=== PATIENT | male | born 1975 | race Caucasian/White ===

== ENCOUNTER 2017-10-19 21:35 | Emergency (ER) | payer BC ==
[~2017-10-19] VITALS: Ht 182.9 cm; Wt 113.4 kg
[2017-10-19 22:07] VITALS: BP 178/70
[2017-10-19 22:10] LABS: BASO % 0 % (0-3); EOS # 0.3 x10^3/uL (0.0-0.7); EOS % 4 % (0-3); HEMATOCRIT 46.4 % (39.0-53.0); HEMOGLOBIN 15.8 g/dL (13.0-17.5); LYMPH # 2.6 x10^3/uL (1.0-4.8); LYMPH % 33 % (24-48); MEAN CORPUSCULAR HEMOGLOBIN 31 pg (25-35); MEAN CORPUSCULAR HGB CONC 34 g/dL (31-37); MEAN CORPUSCULAR VOLUME 91 fL (79-100); MONO # 0.9 x10^3/uL (0.0-1.1); MONO % 12 % (0-9); NEUT % 51 % (31-73); PLATELET COUNT 196 x10^3/uL (140-400); RED BLOOD COUNT 5.12 x10^6/uL (4.30-5.70); RED CELL DISTRIBUTION WIDTH 14.2 % (11.5-14.5); WHITE BLOOD COUNT 7.8 x10^3/uL (4.0-11.0)
[2017-10-19 22:18] LABS: PROTHROMBIN TIME PATIENT 12.9 SEC (11.7-14.0)
[2017-10-19 22:21] LABS: D-DIMER < 0.27 ug/mlFEU (0.00-0.50)
[2017-10-19 22:26] LABS: CALCIUM 8.9 mg/dL (8.5-10.1); CREATININE 0.8 mg/dL (0.7-1.3); GFR 106.5; POTASSIUM 4.1 mmol/L (3.5-5.1)
[2017-10-19] MEDS ORDERED: ALBUTEROL SULFATE 2.5 MG/3 ML NEBU. NEB ONE (22:30)
[2017-10-19 22:31] LABS: ALBUMIN 3.4 g/dL (3.4-5.0); ALBUMIN/GLOBULIN RATIO 1.1 (1.0-1.7); TOTAL BILIRUBIN 0.3 mg/dL (0.2-1.0); TOTAL PROTEIN 6.5 g/dL (6.4-8.2)
[2017-10-19] MEDS ORDERED: PROAIR HFA8.5 GM INH (23:31)
--- NOTE | 2017-10-19 23:35 | PHYS DOC ---
Past Medical History Past Medical History: Other Additional Past Medical Histor: CHRONIC BACK PAIN Alcohol Use: None Drug Use: None Adult General Chief Complaint Chief Complaint: CHEST PAIN HPI HPI Patient is a 42 year old male who presents to the emergency department with complaints of chest tightness. He states that he was seen at [facility] in [place] this morning for the same thing and he had a complete workup. Including lab work and a CT scan of his chest. He states that he declined to be admitted to [place]. Patient denies any chest pain at this time he states that it feels like he can't take a deep breath patient denies any nausea, vomiting, breaking out in a sweat, indigestion, back pain, or abdominal pain. Patient also denies any swelling in his extremities, diarrhea, fever, or headache. He states that he has had a dry cough, and has felt a little short of breath for the last 3 days. Currently he rates his pain as a 0-10 on the pain scale. Patient states he is allergic to penicillin and red meat, he has a history of chronic back pain and is a former smoker he quit approximately 8 years ago. Patient states that while he was at [facility] he did not receive breathing treatment. Review of Systems Review of Systems Constitutional: Denies fever or chills [] Eyes: Denies change in visual acuity, redness, or eye pain [] HENT: Denies nasal congestion or sore throat [] Respiratory: Reports dry cough, chest tightness, and shortness of breath or the last 3 days. Cardiovascular: He denies any chest pain, palpitations, syncope, dizziness, or diaphoresis. GI: Denies abdominal pain, nausea, vomiting, or diarrhea [] Musculoskeletal: Denies back pain or joint pain [] Integument: Denies rash or skin lesions [] Neurologic: Denies headache, focal weakness or sensory changes [] All other systems were reviewed and found to be within normal limits, except as documented in this note. Current Medications Current Medications Current Medications Medications (Trade) Dose Ordered Sig/Soren Start Time Stop Time Status Last Admin Dose Admin Albuterol Sulfate (Ventolin Neb Soln) 2.5 mg 1X ONCE 10/19/17 22:30 10/19/17 22:31 DC 10/19/17 22:30 2.5 MG Dexamethasone Sodium Phosphate (Decadron) 10 mg 1X ONCE 10/19/17 23:45 10/19/17 23:46 DC 10/19/17 23:41 10 MG Allergies Allergies Allergies Coded Allergies Type Severity Reaction Last Updated Verified Penicillins Allergy Unknown 10/19/17 Yes Uncoded Allergies Type Severity Reaction Last Updated Verified RED MEAT Allergy Unknown 10/19/17 Physical Exam Physical Exam Constitutional: Well developed, well nourished, no acute distress, non-toxic appearance. [] HENT: Normocephalic, atraumatic, bilateral external ears normal, oropharynx moist, no oral exudates, nose normal. [] Eyes: PERRLA, EOMI, conjunctiva normal, no discharge. [] Neck: Normal range of motion, no tenderness, supple, no stridor. [] Cardiovascular:Heart rate regular rhythm, no murmur [] Lungs & Thorax: Bilateral breath sounds clear to auscultation [] Abdomen: Bowel sounds normal, soft, no tenderness, no masses, no pulsatile masses. [] Skin: Warm, dry, no erythema, no rash. [] Back: No tenderness, no CVA tenderness. [] Extremities: No tenderness, no cyanosis, no clubbing, ROM intact, no edema. [] Neurologic: Alert and oriented X 3, normal motor function, normal sensory function, no focal deficits noted. [] Psychologic: Affect normal, judgement normal, mood normal. [] Current Patient Data Vital Signs Vital Signs Date Time Temp Pulse Resp B/P (MAP) Pulse Ox O2 Delivery O2 Flow Rate FiO2 10/19/17 22:56 99 Room Air 10/19/17 22:07 98.6 70 18 178/70 (106) 98.6 Lab Values Laboratory Tests Test 10/19/17 22:00 White Blood Count 7.8 x10^3/uL (4.0-11.0) Red Blood Count 5.12 x10^6/uL (4.30-5.70) Hemoglobin 15.8 g/dL (13.0-17.5) Hematocrit 46.4 % (39.0-53.0) Mean Corpuscular Volume 91 fL (79-100) Mean Corpuscular Hemoglobin 31 pg (25-35) Mean Corpuscular Hemoglobin Concent 34 g/dL (31-37) Red Cell Distribution Width 14.2 % (11.5-14.5) Platelet Count 196 x10^3/uL (140-400) Neutrophils (%) (Auto) 51 % (31-73) Lymphocytes (%) (Auto) 33 % (24-48) Monocytes (%) (Auto) 12 % (0-9) H Eosinophils (%) (Auto) 4 % (0-3) H Basophils (%) (Auto) 0 % (0-3) Neutrophils # (Auto) 4.0 x10^3uL (1.8-7.7) Lymphocytes # (Auto) 2.6 x10^3/uL (1.0-4.8) Monocytes # (Auto) 0.9 x10^3/uL (0.0-1.1) Eosinophils # (Auto) 0.3 x10^3/uL (0.0-0.7) Basophils # (Auto) 0.0 x10^3/uL (0.0-0.2) Prothrombin Time 12.9 SEC (11.7-14.0) Prothrombin Time INR 1.0 (0.8-1.1) D-Dimer (Selina) < 0.27 ug/mlFEU Sodium Level 138 mmol/L (136-145) Potassium Level 4.1 mmol/L (3.5-5.1) Chloride Level 105 mmol/L (98-107) Carbon Dioxide Level 28 mmol/L (21-32) Anion Gap 5 (6-14) L Blood Urea Nitrogen 16 mg/dL (8-26) Creatinine 0.8 mg/dL (0.7-1.3) Estimated GFR (Cockcroft-Gault) 106.5 BUN/Creatinine Ratio 20 (6-20) Glucose Level 86 mg/dL (70-99) Calcium Level 8.9 mg/dL (8.5-10.1) Total Bilirubin 0.3 mg/dL (0.2-1.0) Aspartate Amino Transferase (AST) 22 U/L (15-37) Alanine Aminotransferase (ALT) 44 U/L (16-63) Alkaline Phosphatase 43 U/L (46-116) L Troponin I Quantitative < 0.017 ng/mL (0.000-0.055) Total Protein 6.5 g/dL (6.4-8.2) Albumin 3.4 g/dL (3.4-5.0) Albumin/Globulin Ratio 1.1 (1.0-1.7) Laboratory Tests 10/19/17 22:00 Laboratory Tests 10/19/17 22:00 Patient brought his lab work from [facility] in [place] that was done earlier this morning at approximately 7:22 AM his troponin at that time was 0.12 his CK-MB was 2.55 his CK was 122, BNP was 232 and d-dimer was not measured. CBC and CMP were within normal limits EKG EKG Sinus rhythm, no ST elevation read by Dr. Hinojosa at 2150 [] Radiology/Procedures Radiology/Procedures Chest x-ray negative for any acute findings read by Dr. Hinojosa[] Course & Med Decision Making Course & Med Decision Making Pertinent Labs and Imaging studies reviewed. (See chart for details) Patient is a 42-year-old male who presented to the emergency room with complaints of chest tightness, and shortness of breath for the last 3 days with a dry cough. VSS, EKG was not concerning for an acute myocardial infarction, chest x-ray did not reveal any acute thoracic process. Labs were unremarkable, patient's troponin was not elevated, his d-dimer was negative. Pt reported decreased chest tightness and feeling better after he received 1 albuterol treatment in the emergency department. Differential diagnosis included acute coronary infarction, pulmonary embolus, pneumonia, and bronchitis. His clinical exam and test results support a diagnosis of bronchitis. Patient was given one dose of a IV Decadron prior to discharge he continued to report feeling better and denied chest pain throughout his visit. She verbalized understanding of diagnosis, home care, prescription, follow-up, and return to ED instructions with no further questions or concerns. [] Dragon Disclaimer Dragon Disclaimer This electronic medical record was generated, in whole or in part, using a voice recognition dictation system. Departure Departure Impression: Primary Impression: Bronchitis Disposition: HOME, SELF-CARE Condition: STABLE Referrals: NO PCP (PCP) Patient Instructions: Bronchitis Additional Instructions: Fill prescription and use as directed. Avoid exposure to airway irritants including smoke, dust, perfumes, and candles. Follow-up with her primary care doctor in the next 1-2 days. Return to the emergency room if her symptoms worsen. Scripts Albuterol Sulfate (PROAIR HFA INHALER) 8.5 Gm Hfa.aer.ad 1-2 PUFF INH PRN Q4-6HRS PRN for SHORTNESS OF BREATH for 30 Days, #1 INHALER 0 Refills Prov: ROOSEVELT RANGEL APRN 10/19/17 ROOSEVELT RANGEL APRN Oct 19, 2017 23:35
[2017-10-19] MEDS ORDERED: DEXAMETHASONE SOD PHOS 20 MG/5 ML VIAL. IV ONE (23:45)
--- NOTE | 2017-10-20 06:44 | EKG ---
[facility] [address] [place] [address] Test Date: 2017-10-19 Test Time: 21:46:20 Pat Name: BELKIS SALDAÑA Department: Room: Gender: M [employer]: : [id number] Requested By: ROOSEVELT RANGEL Order Number: [id number] Reading MD: Measurements Intervals [place] Rate: 68 P: 21 WY: 146 QRS: 12 QRSD: 94 T: 41 QT: 354 QTc: 381 Interpretive Statements SINUS RHYTHM QRS(T) CONTOUR ABNORMALITY CONSIDER ANTEROLATERAL MYOCARDIAL DAMAGE POSSIBLY ABNORMAL ECG RI6.01 No previous ECG available for comparison
--- NOTE | 2017-10-20 08:24 | RAD ---
AP and Lateral Views of the Chest 10/19/2017 9:44 PM Indication: chest pain today Comparison: None available Findings: There is no focal consolidation or infiltrate identified. The cardiomediastinal silhouette is within normal limits. There is no evidence of pneumothorax or pleural effusion. No acute osseous abnormalities are identified. Impression: No evidence of acute cardiopulmonary process. Electronically signed by: Johnny Recio MD (10/20/2017 8:20 AM) [id number]
== END 2017-10-19 23:56 | disposition home or self-care (01) ==
LOC: ER 21:35
DX: J40 Bronchitis, not specified as acute or chronic (principal); G89.29 Other chronic pain; Z88.0 Allergy status to penicillin; Z91.018 Allergy to other foods
CPT/HCPCS: 36415; 71046; 80053; 84484; 85025; 85379; 85610; 93005; 94640; 96374; 99285; J1100; J7613; 96361

== ENCOUNTER 2017-10-20 18:24 | Emergency (ER) | payer BC ==
[~2017-10-20] VITALS: Ht 182.9 cm; Wt 113.4 kg
[~2017-10-20 18:24] MED LIST: PROAIR HFA8.5 GM INH
[2017-10-20 19:54] LABS: BILIRUBIN,URINE NEGATIVE (NEG); CLARITY,URINE CLEAR; COLOR,URINE YELLOW; NITRITE,URINE NEGATIVE (NEG); PROTEIN,URINE NEGATIVE (NEG-TRACE)
[2017-10-20 19:57] LABS: BARBITURATES NEG (NEG); BENZODIAZEPINES NEG (NEG); CANNABINOIDS NEG (NEG); COCAINE NEG (NEG); METHADONE NEG (NEG); OPIATES NEG (NEG); PHENCYCLIDINE NEG (NEG)
[2017-10-20 19:59] LABS: AMPHETAMINE/METHAMPHETAMINE NEG (NEG)
[2017-10-20 20:04] LABS: BACTERIA,URINE 0 /HPF (0-FEW); RBC,URINE 0 /HPF (0-2); SQUAMOUS EPITHELIAL CELL,UR OCC /LPF; WBC,URINE OCC /HPF (0-4)
[2017-10-20 21:35] VITALS: BP 123/64
--- NOTE | 2017-10-20 22:32 | PHYS DOC ---
Past Medical History Past Medical History: Other Additional Past Medical Histor: CHRONIC BACK PAIN Past Surgical History: No Surgical History Alcohol Use: None Drug Use: None Adult General Chief Complaint Chief Complaint: MULTIPLE COMPLAINTS HPI HPI Patient is a 42 year old male who presents with multiple diffuse complaints. The patient first fell ill last week. He was out of town. He ate some red meat and he feels that he may have had an allergic reaction to the meet itself. He had some skin changes and erythema. He had some sensation of swelling about his throat. He had some chest pain. He went to an emergency room in [facility] where he underwent cardiac testing and had a CT of his chest. According the patient, his workup did not reveal any acute findings. He was placed on prednisone for 3 days for suspicion of possible allergic reaction. He really presented to this emergency department last night when he had recurrence of similar symptoms. There were no acute findings on the workup last night which did include lab work and troponin and d-dimer. Today, he presents to the ER again complaining that he feels like he had some swelling over the anterior portion of his neck and his throat. He did not have any additional chest pain today. The patient has no focal complaints. He merely feels that he may be having either an ongoing reaction to the [place] or possible side effects of the prednisone. No fever. Again, no chest pain today. No shortness of breath. Review of Systems Review of Systems Constitutional: Denies fever Eyes: Denies change in visual acuity HENT: Denies nasal congestion Respiratory: Denies cough or shortness of breath Cardiovascular: No additional information GI: Denies abdominal pain : Denies dysuria or hematuria Integument: Denies rash Neurologic: headache All other systems were reviewed and found to be within normal limits, except as documented in this note. Allergies Allergies Allergies Coded Allergies Type Severity Reaction Last Updated Verified Penicillins Allergy Unknown 10/19/17 Yes Uncoded Allergies Type Severity Reaction Last Updated Verified RED MEAT Allergy Unknown 10/19/17 Physical Exam Physical Exam Constitutional: Well developed, well nourished, no acute distress HENT: Normocephalic, atraumatic, bilateral external ears normal, TM's are dull, rogel, intact Eyes: PERRLA, EOMI, conjunctiva normal Neck: Normal range of motion, no tenderness, supple Cardiovascular:Heart rate regular rhythm, no murmur Lungs & Thorax: Bilateral breath sounds clear Abdomen: Bowel sounds normal, soft, no tenderness Skin: Warm, dry, no erythema, no rash Extremities: Normal exam Neurologic: Alert and oriented X 3 Current Patient Data Vital Signs Vital Signs Date Time Temp Pulse Resp B/P (MAP) Pulse Ox O2 Delivery O2 Flow Rate FiO2 10/20/17 21:35 70 20 123/64 (83) 95 Room Air Lab Values Laboratory Tests Test 10/20/17 19:00 10/20/17 19:35 Urine Collection Type Unknown Urine Color Yellow Urine Clarity Clear Urine pH 6.0 Urine Specific [place] >=1.030 Urine Protein Negative mg/dL (NEG-TRACE) Urine Glucose (UA) Negative mg/dL (NEG) Urine Ketones (Stick) Negative mg/dL (NEG) Urine Blood Negative (NEG) Urine Nitrite Negative (NEG) Urine Bilirubin Negative (NEG) Urine Urobilinogen Dipstick 1.0 mg/dL (0.2 mg/dL) Urine Leukocyte Esterase Negative (NEG) Urine RBC 0 /HPF (0-2) Urine WBC Occ /HPF (0-4) Urine Squamous Epithelial Cells Occ /LPF Urine Calcium Phosphate Crystals /HPF Urine Bacteria 0 /HPF (0-FEW) Urine Mucus Slight /LPF Urine Opiates Screen Neg (NEG) Urine Methadone Screen Neg (NEG) Urine Barbiturates Neg (NEG) Urine Phencyclidine Screen Neg (NEG) Urine Amphetamine/Methamphetamine Neg (NEG) Urine Benzodiazepines Screen Neg (NEG) Urine Cocaine Screen Neg (NEG) Urine Cannabinoids Screen Neg (NEG) Urine Ethyl Alcohol Neg (NEG) Erythrocyte Sedimentation Rate 1 (0-15) Troponin I Quantitative < 0.017 ng/mL (0.000-0.055) C-Reactive Protein, Quantitative 1.0 mg/L (0-3.3) Thyroid Stimulating Hormone (TSH) 0.546 uIU/mL (0.358-3.74) EKG EKG [] Radiology/Procedures Radiology/Procedures [] Course & Med Decision Making Course & Med Decision Making Pertinent Labs and Imaging studies reviewed. (See chart for details) Patient was evaluated in the emergency department. He has already had an extensive workup including CT scan of the chest and extensive lab panels collected. This evening, it is not clear what is causing his symptoms. He is complaining of swelling of the extremities but he has no swelling on exam. The posterior oropharynx is also free from any abnormal findings during physical exam. TSH was checked this evening along with a repeat troponin. These were both normal range. ESR and CRP also checked and found to be normal. I discussed with the patient that normal studies does not rule out a health condition but that sufficient workup had been completed to evaluate for any emergency condition. Patient is discharged to home. He is referred to cardiology because he was advised earlier in the week that he should undergo stress testing. Patient is agreeable to the plan of care. Dragon Disclaimer Dragon Disclaimer This electronic medical record was generated, in whole or in part, using a voice recognition dictation system. Departure Departure Impression: Primary Impression: Allergic reaction Additional Impression: Swelling Disposition: 01 HOME, SELF-CARE Condition: GOOD Referrals: WALTER HARVEY MD Patient Instructions: Allergies, Generic Problem Qualifiers OLIVIA KUHN DO Oct 20, 2017 22:32
== END 2017-10-20 21:50 | disposition home or self-care (01) ==
LOC: ER 18:24
DX: T78.40XA Allergy, unspecified, initial encounter (principal); Z88.0 Allergy status to penicillin; Z91.018 Allergy to other foods; X58.XXXA Exposure to other specified factors, initial encounter
CPT/HCPCS: 36415; 80307; 81001; 84443; 84484; 85651; 86140; 99284; G0479

== ENCOUNTER → 2017-11-21 | Outpatient (CLI) | payer BC | END | disposition home or self-care (01) | LOC: LAB 10:28 | PROVIDERS: ATTEND Internal Medicine Pulmonary Disease | DX: R06.00 Dyspnea, unspecified (principal); Z91.018 Allergy to other foods; Z88.0 Allergy status to penicillin | CPT/HCPCS: 36415; 85379 ==